=== PATIENT | male | born 1975 | race American Indian/Alaskan Native ===

== ENCOUNTER 2017-04-06 19:53 | Emergency (ER) | payer MEDICARE ==
[2017-04-06 20:39] LABS: Basophils % (Auto) 0.8 % (0.0-1.8); Eosinophils % (Auto) 1.7 % (0.0-4.3); Hematocrit 40.6 % (35.5-45.6); Mean Corpuscular HGB Conc 35 % (32-34); Mean Corpuscular Hemoglobin 32 pg (28-32); Mean Corpuscular Volume 92 fl (84-94); Platelet Count 228 K/mm3 (140-440); Red Blood Count 4.43 M/mm3 (3.65-5.03); Red Cell Distribution Width 14.8 % (13.2-15.2)
[2017-04-06 20:55] LABS: Alanine Aminotransferase 25 units/L (7-56); Albumin 4.2 g/dL (3.9-5); Albumin/Globulin Ratio 1.2 %; Alkaline Phosphatase 66 units/L (35-129); Anion Gap 19 mmol/L; BUN/Creatinine Ratio 17.14; Blood Urea Nitrogen 12 mg/dL (9-20); Calcium 9.4 mg/dL (8.4-10.2); Carbon Dioxide 21 mmol/L (22-30); Chloride 102.5 mmol/L (98-107); Glucose 93 mg/dL (75-100); Lipase 28 units/L (13-60); Potassium 4.1 mmol/L (3.6-5.0); Sodium 138 mmol/L (137-145); Total Protein 7.7 g/dL (6.3-8.2)
[2017-04-06 22:13] LABS: Bilirubin,Urine NEG (Negative); Blood,Urine SM (Negative); Ketones,Urine NEG (Negative); Leukocyte Esterase,Urine NEG (Negative); Mucus,Urine FEW /HPF; Nitrite,Urine NEG (Negative); Protein,Urine <15 mg/dL mg/dL (Negative)
[2017-04-07] MEDS ORDERED: MORPHINE IV ONE (01:41)
[2017-04-07] MEDS ORDERED: NACL 0.9% 500 ML 500 ML IV ONE (01:42)
--- NOTE | 2017-04-07 03:12 | Emergency Department Report ---
HPI - General Chief Complaint: Abdominal Pain Time Seen by Provider: 04/07/17 01:13 - HPI HPI: This is a 42 year-old male presents to the emergency department with complaint of right lower quadrant abdominal pain has been going on for the past 2 weeks. The past 4 days he says he has been spitting up a lot of mucus and thinks the 2 symptoms are related. He has not taken anything for her symptoms prior to presentation. He denies any past medical history. He has not taken anything for his symptoms prior to presentation. No sick contacts at home. He has a primary care physician back in [place] where he is from. He denies any problems with bowel or bladder, back pain, fever. ED Past Medical Hx - Past Medical History Previous Medical History?: No - Surgical History Past Surgical History?: Yes Additional Surgical History: TESTICLE - Social History Smoking Status: Current Every Day Smoker Substance Use Type: Alcohol - Medications Home Medications: Home Medications Medication Instructions Recorded Confirmed Last Taken Type HYDROcodone/APAP 5-325 [[place] 1 each PO Q6HR PRN #10 tablet 04/07/17 Unknown Rx 5/325] ED Review of Systems ROS: Stated complaint: ABD & CHEST PAIN Other details as noted in HPI Comment: All other systems reviewed and negative Constitutional: denies: chills, fever Eyes: denies: eye pain, eye discharge, vision change ENT: denies: ear pain, throat pain Respiratory: denies: cough, shortness of breath, wheezing Cardiovascular: denies: chest pain, palpitations Gastrointestinal: abdominal pain. denies: diarrhea, constipation Genitourinary: denies: urgency, dysuria Musculoskeletal: denies: back pain, joint swelling, arthralgia Skin: denies: rash, lesions Neurological: denies: headache, weakness, paresthesias Physical Exam - Physical Exam Vital Signs: Vital Signs 04/06/17 04/07/17 20:00 00:10 Temperature 98.5 F 98.6 F Pulse Rate 82 67 Respiratory 20 16 Rate Blood Pressure 129/85 Blood Pressure 104/68 [Left] O2 Sat by Pulse 99 98 Oximetry Physical Exam: GENERAL: The patient is well-developed well-nourished. HENT: Normocephalic. Atraumatic. Patient has moist mucous membranes. EYES: Extraocular motions are intact. Pupils equal reactive to light bilaterally. NECK: Supple. Trachea is midline. CHEST/LUNGS: Clear to auscultation. There is no respiratory distress noted. HEART/CARDIOVASCULAR: Regular. There is no tachycardia. There is no gallop rub or murmur. ABDOMEN: Abdomen is soft. There is some mild right lower quadrant tenderness to palpation. No guarding or rebound tenderness. No peritoneal signs. Patient has normal bowel sounds. There is no abdominal distention. SKIN: There is no rash. There is no edema. There is no diaphoresis. NEURO: The patient is awake, alert, and oriented. The patient is cooperative. The patient has no focal neurologic deficits. The patient has normal speech. MUSCULOSKELETAL: There is no tenderness or deformity. There is no limitation range of motion. There is no evidence of acute injury. ED Course Vital Signs 04/06/17 04/07/17 20:00 00:10 Temperature 98.5 F 98.6 F Pulse Rate 82 67 Respiratory 20 16 Rate Blood Pressure 129/85 Blood Pressure 104/68 [Left] O2 Sat by Pulse 99 98 Oximetry ED Medical Decision Making - Lab Data Result diagrams: 04/06/17 20:13 04/06/17 20:13 - Radiology Data Radiology results: report reviewed CT of the abdomen and pelvis with IV contrast does not show any acute intra- abdominal or intrapelvic process. - Medical Decision Making 42-year-old male presents with a 2 to three-week history of intermittent right lower quadrant abdominal pain. Vital signs stable throughout his ED course. Labs are mostly unremarkable and do not show any etiology of his symptoms. As the right lower quadrant is tender to palpation, a CT of the abdomen and pelvis with IV contrast was done to look for etiology of his symptoms but also to rule out appendicitis as the cause. The CT showed no intra-abdominal or intrapelvic process. He appears safe for discharge home at this time and will be given referrals for primary care and gastroenterology. He will return to the ER with any worsening of symptoms or any acute distress. - Differential Diagnosis appendicitis, colitis, diverticulitis, malignancy Critical Care Time: No Critical care attestation.: If time is entered above; I have spent that time in minutes in the direct care of this critically ill patient, excluding procedure time. ED Disposition Clinical Impression: Abdominal pain Qualifiers: Abdominal location: right lower quadrant Qualified Code(s): R10.31 - Right lower quadrant pain Disposition: DC-01 TO HOME OR SELFCARE Is pt being admited?: No Condition: Stable Instructions: Abdominal Pain (ED) Additional Instructions: Please follow up with a primary care physician in the next few days. I have given you a referral for a local inverter and clipper, Dr. Cooper, in case you would like to follow up regarding your intermittent abdominal pain. Return to the emergency Department with any worsening of your symptoms or any acute distress. You have been prescribed a medication that is sedating and therefore should not be taken prior to driving, working, and responsible for children and in no way should be mixed with alcohol of any quantity. Prescriptions: HYDROcodone/APAP 5-325 [[place] 5/325] 1 each PO Q6HR PRN #10 tablet PRN Reason: Pain Referrals: PRIMARY CAREMD [Primary Care Provider] - 3-5 Days SKYLA GARRISON MD [Staff Physician] - 3-5 Days JAZMINE COOPER MD [Staff Physician] - 3-5 Days [facility] [place] [Outside] - 3-5 Days Time of Disposition: 05:02
--- NOTE | 2017-04-07 04:50 | Cat Scan Report ---
FINAL REPORT EXAM: CT ABDOMEN PELVIS W CON HISTORY: Abd pain rlq TECHNIQUE: CT images are acquired through the Abdomen and Pelvis arterial and delayed phases following intravenous administration contrast. Transaxial, coronal and sagittal reformations are provided. PRIORS: None FINDINGS: Partially visualized intrathoracic contents are unremarkable. The liver, gallbladder, pancreas, spleen, and adrenal glands are unremarkable. Kidneys show no worrisome lesions, hydronephrosis, or calculi. Urinary bladder is unremarkable. Small and large bowel are normal in caliber. Appendix is normal. No free air, free fluid, or lymphadenopathy identified. Aorta is normal in course and caliber. Superficial soft tissues are unremarkable. No acute or aggressive appearing skeletal findings. IMPRESSION: No acute intra-abdominal process.
[2017-04-07 05:19] VITALS: BP 131/88
== END 2017-04-07 05:10 | disposition home or self-care (01) ==
LOC: EDSEX → ED 19:53
DX: R10.31 Right lower quadrant pain (principal); F17.200 Nicotine dependence, unspecified, uncomplicated
CPT/HCPCS: 36415; 74177; 80053; 81001; 83690; 85025; 96361; 96374; 99284; J2270; J7040; Q9967